=== PATIENT | female | born 2000 | race American Indian/Alaskan Native ===

== ENCOUNTER 2020-12-15 23:56 | Emergency (ER) | payer SELFPAY ==
[2020-12-16] MEDS ORDERED: IBUPROFEN 800 MG TAB PO ONE (00:30)
--- NOTE | 2020-12-16 00:35 | Emergency Department Report ---
ED Lower Extremity HPI - General Stated Complaint: RIGHT KNEE PAIN/SWOLLEN FROM FALL - History of Present Illness Initial Comments: Pt is a 20 y/o aaf who presents for complaint of right anteior knee pain, pt stat she wa horse playing and slipped lainding or her right knee. now with partial weight bearing, pain is descrbed as 5/10 aching sharp, pain is relieved nothing, pain is exacerbated weight bearing and movement MD Complaint: knee injury Place: home Severity: moderate Severity scale (0 -10): 2 Improves With: rest Worsens With: weight bearing Context: other (mixing phfa) Associated Symptoms: swelling, numbness, tingling - Related Data Previous Rx's Medication Instructions Recorded Last Taken Type Ibuprofen [Motrin 800 MG tab] 800 mg PO Q8HR PRN #30 tablet 12/16/20 Unknown Rx Menthol/Camphor [[place] 1 applicatio TP Q8H PRN #1 tube 12/16/20 Unknown Rx Ointment] Naproxen 500 mg PO BID PRN #30 tablet 12/16/20 Unknown Rx predniSONE [Deltasone] 40 mg PO QDAY #10 tab 12/16/20 Unknown Rx Allergies Allergy/AdvReac Type Severity Reaction Status Date / Time No Known Allergies Allergy Unverified 12/16/20 00:28 ED Review of Systems ROS: Stated complaint: RIGHT KNEE PAIN/SWOLLEN FROM FALL Other details as noted in HPI Constitutional: denies: chills, fever Eyes: denies: eye pain, eye discharge, vision change ENT: denies: ear pain, throat pain Respiratory: denies: cough, shortness of breath, wheezing Cardiovascular: denies: chest pain, palpitations Endocrine: no symptoms reported Gastrointestinal: denies: abdominal pain, nausea, diarrhea Genitourinary: denies: urgency, dysuria, discharge Musculoskeletal: other (right knee pain ) Skin: denies: rash, lesions Neurological: as per HPI Psychiatric: as per HPI Hematological/Lymphatic: denies: easy bleeding, easy bruising ED Past Medical Hx - Medications Home Medications: Home Medications Medication Instructions Recorded Confirmed Last Taken Type Ibuprofen [Motrin 800 MG tab] 800 mg PO Q8HR PRN #30 tablet 12/16/20 Unknown Rx Menthol/Camphor [[place] 1 applicatio TP Q8H PRN #1 tube 12/16/20 Unknown Rx Ointment] Naproxen 500 mg PO BID PRN #30 tablet 12/16/20 Unknown Rx predniSONE [Deltasone] 40 mg PO QDAY #10 tab 12/16/20 Unknown Rx ED Physical Exam - General General appearance: alert, in no apparent distress - Head Head exam: Present: normocephalic, normal inspection - Expanded Head Exam Expanded Head exam: Absent: laceration, abrasion, contusion, hematoma - Eye Eye exam: Present: normal appearance, PERRL, EOMI Pupils: Present: normal accommodation - ENT ENT exam: Present: normal exam. Absent: normal orophraynx, mucous membranes moist, normal external ear exam - Neck Neck exam: Present: normal inspection, full ROM. Absent: tenderness - Respiratory Respiratory exam: Present: normal lung sounds bilaterally. Absent: respiratory distress, wheezes, stridor, chest wall tenderness - Cardiovascular Cardiovascular Exam: Present: regular rate, normal rhythm, normal heart sounds. Absent: systolic murmur, diastolic murmur, rubs, gallop - GI/Abdominal GI/Abdominal exam: Present: soft, normal bowel sounds. Absent: distended, tenderness, guarding, rebound, rigid, bruit, hernia - Rectal Rectal exam: Present: deferred - Extremities Exam Extremities exam: Present: full ROM, tenderness (right anterior knee ) - Back Exam Back exam: Present: normal inspection, full ROM. Absent: tenderness, CVA t enderness (R), CVA tenderness (L), vertebral tenderness - Neurological Exam Neurological exam: Present: alert, oriented X3, CN II-XII intact, abnormal gait (partial weight bearing ), reflexes normal. Absent: motor sensory deficit - Expanded Neurological Exam Expanded Patient oriented to: Present: person, place, time Speech: Present: fluid speech Motor strength exam: RUE: 5, LUE: 5, RLE: 5, LLE: 5 DTR: knee (R): 2+, knee (L): 2+ Best Eye Response ([place]): (4) open spontaneously Best Motor Response ([place]): (6) obeys commands Best Verbal Response ([place]): (5) oriented [place] Total: 15 - Psychiatric Psychiatric exam: Present: normal affect, normal mood - Skin Skin exam: Present: warm, dry, intact, normal color. Absent: rash ED Course Vital Signs 12/16/20 00:30 Temperature 98.2 F Pulse Rate 79 Respiratory 16 Rate Blood Pressure 106/62 O2 Sat by Pulse 97 Oximetry ED Lower Extremity MDM - Radiology Data Radiology results: report reviewed, image reviewed moderate knee effusion - Medical Decision Making xray , moderate knee effusion, pt states pain with attemptin ambulate, plan cruthces, knee marisa wrap, NSAIDS prn pain , tiger balm follow up with orthopedics in 2-3 days, pt verbalized agreement and understanding of discharge plan. dcd to home in stable condition at this time. Critical care attestation.: If time is entered above; I have spent that time in minutes in the direct care of this critically ill patient, excluding procedure time. ED Disposition Clinical Impression: Knee effusion, right Disposition: DC-01 TO HOME OR SELFCARE Is pt being admited?: No Condition: Stable Instructions: Knee Effusion, [id number], Knee Effusion, Crutch Use, Adult, [id number], Elastic Bandage and RICE Therapy, RICE Therapy for Routine Care of Injuries, [id number] Prescriptions: predniSONE [Deltasone] 40 mg PO QDAY #10 tab Ibuprofen [Motrin 800 MG tab] 800 mg PO Q8HR PRN #30 tablet PRN Reason: pain Naproxen 500 mg PO BID PRN #30 tablet PRN Reason: pain Menthol/Camphor [[place] Ointment] 1 applicatio TP Q8H PRN #1 tube PRN Reason: pain Referrals: ONDINA ASHBY MD [Staff Physician] - 3-5 Days Forms: Work/School Release Form(ED) Time of Disposition: 01:13
--- NOTE | 2020-12-16 00:53 | XRay Report ---
RIGHT KNEE 3 VIEW(S) INDICATION / CLINICAL INFORMATION: right knee pain COMPARISON: None available. FINDINGS: BONES / JOINT(S): No acute fracture or subluxation. No significant arthritis. SOFT TISSUES: No significant abnormality. ADDITIONAL FINDINGS: Moderate knee effusion. Signer Name: Akash Asher MD Signed: 12/16/2020 12:48 AM Workstation Name: [id number]
[2020-12-16] MEDS ORDERED: predniSONE 20 MG TAB PO ONE (00:58)
[2020-12-16 01:35] VITALS: BP 108/63
== END 2020-12-16 01:30 | disposition home or self-care (01) ==
LOC: ED 23:56
DX: M25.461 Effusion, right knee (principal); Z79.899 Other long term (current) drug therapy
CPT/HCPCS: 73562; 99283; J7512